=== PATIENT | female | born 1995 | race Caucasian/White ===

== ENCOUNTER 2024-12-16 11:45 | Emergency (ER) | payer MEDICAID ==
[2024-12-16 12:23] VITALS: BP 127/64; PULSE 80
[2024-12-16] MEDS: Take Home: Amoxicillin/Clavulanate K 875-125 MG Tab, 6 Tab Pack PO ONE (12:33)
== END 2024-12-16 12:35 | disposition home or self-care (01) ==
LOC: CC.ED 11:45
DX: J02.0 Streptococcal pharyngitis (principal); Z88.1 Allergy status to other antibiotic agents; Z79.899 Other long term (current) drug therapy
CPT/HCPCS: 99282; A9270